=== PATIENT | female | born 1945 | race Caucasian/White ===

== ENCOUNTER 2024-03-05 07:47 | Outpatient (REF) | payer MEDICARE, SELFPAY ==
--- NOTE | ~2024-03-05 | CT_ITS ---
EXAMINATION: CT ANGIOGRAPHY ABDOMEN WITHOUT AND WITH CONTRAST CLINICAL INFORMATION: SPLENIC ARTERY ANEURYSM COMPARISON: None available. TECHNIQUE: Initial noncontrast localizing welt beater images were obtained. A timing bolus at the level of the celiac artery was calculated. Subsequently, arterial phase multidetector volumetric imaging was performed through the abdomen following the administration of 80 mL Omnipaque 350 intravenous contrast. No contrast reaction reported. Sagittal and coronal reformatted images were obtained on the technologist workstation. After extensive post-processing on a dedicated 3-D workstation, 3-D reformatted images were uploaded to PACS and reviewed as well. This CT examination was performed using dose optimization techniques as appropriate, variously including the following: *Automated exposure control *Adjustment of mA and/or kV according to patient size (this includes techniques or standardized protocols for targeted exams where dose is matched to indication/reason for exam; i.e. extremities or head) *Use of iterative reconstruction technique DLP: 136 mGy-cm FINDINGS: VASCULAR: 1. Aorta: Mild scattered atherosclerosis of aorta and its branches. No aneurysm or dissection of the abdominal aorta. No penetrating atheromatous ulcer. 2. Iliac Arteries: The common, external and internal iliac arteries are patent. 3. Mesenteric Arteries: Celiac artery is patent. Superior mesenteric artery patent. Inferior mesenteric artery patent. 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 4. Renal arteries: Single renal arteries bilaterally. Renal arteries are patent and without stenosis or other vascular anomaly. NONVASCULAR: Lung Bases: 8 x 7 mm nodule in the lingula along a linear band of atelectasis (8:32, 7:15). Additional 6 mm nodule in the left lower lobe (5:15). Liver: Homogeneous in attenuation. Normal in size. No focal lesion. Gallbladder: Status post cholecystectomy with surgical clips located in the gallbladder fossa. Biliary System: The common bile duct is dilated to 1.1 cm and is likely related to postcholecystectomy state. No intrahepatic biliary ductal dilation. Pancreas: Homogeneous in attenuation. No pancreatic ductal dilatation. No focal lesion. Spleen: Normal in size. Adrenal Glands: No focal nodule. Genitourinary: Bilateral kidneys demonstrate symmetric enhancement. No perinephric fluid collection. No renal calculi. No hydroureteronephrosis. GI: Moderate stool burden. The visualized alimentary tract is normal in course. No bowel wall thickening. No dilated loops of bowel to suggest obstruction. Appendix: The appendix is seen in its entirety and is unremarkable. Peritoneum: No pneumoperitoneum. No ascites. No intra-abdominal fluid collection. Lymph Nodes: No pathologically enlarged abdominal or pelvic lymph nodes. Soft Tissues/Musculoskeletal: S-shaped scoliosis. Multilevel degenerative changes of the spine. CT/CT angio abdomen IMPRESSION: 1. 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 Recommend follow-up CTA of the abdomen in 1 year to assess for stability. 2. 8 mm nodule in the lingula along a linear band of atelectasis and a 6 mm nodule in the left lower lobe. According to the UPDATED 2017 Fleischner Society recommendations, the advised follow-up imaging for a single 6-8 mm solid nodule is follow-up CT at 6 to 12 months. In high-risk patients, subsequent CT follow-up at 18 to 24 months is recommended. In low-risk patients, subsequent CT follow-up at 18 to 24 months is optional. Fleischner guidelines were followed. Electronically signed by: Marta Bassett MD 03/06/2024 09:50 PM EDT
[2024-03-05] MEDS: iohexoL 350 MG/ML 100 ML INFUS..BTL 80 ML IV (08:33)
[2024-03-06 08:19] LABS: Creatinine POC 0.6 mg/dL (0.5-1.4); GFR POC > 60
== END 2024-03-05 07:48 | disposition home or self-care (01) ==
LOC: HO.CT 07:47
PROVIDERS: PCP Internal Medicine; Visit Provider Surgery
DX: I72.8 Aneurysm of other specified arteries (principal)
CPT/HCPCS: 74175; 82565; Q9967

== ENCOUNTER → 2025-02-25 23:59 | Outpatient (BNV) | payer MEDICARE, SELFPAY | PROVIDERS: PCP Internal Medicine; Visit Provider Psychiatry & Neurology Neurology | DX: G62.89 Other specified polyneuropathies (principal) | CPT/HCPCS: 95886; 95911 ==